=== PATIENT | female | born 1945 | race Caucasian/White ===

== ENCOUNTER 2017-06-17 00:51 | Inpatient (IN) | payer OTHER ==
[~2017-06-17] VITALS: Ht 162.6 cm; Wt 84.0 kg
[2017-06-17 01:42] LABS: BASOPHIL (%) 0.5 % (0-1); EOSINOPHIL (%) 1.4 % (0-5); EOSINOPHIL COUNT 0.1 K/uL (0-0.3); HEMATOCRIT 38.9 % (36.0-46.0); HEMOGLOBIN 13.3 G/DL (11.9-15.5); LYMPHOCYTE (%) 18.1 % (15-42); LYMPHOCYTE COUNT 1.5 K/uL (1.0-2.8); MCH 28.9 PG (29.0-34.0); MCHC 34.2 G/DL (30.0-36.0); MCV 84.4 FL (83-99); MONOCYTE (%) 7.1 % (3-12); MONOCYTE COUNT 0.6 K/uL (0-0.8); NEUTROPHIL (%) 71.9 % (45-76); PLATELET COUNT 194 K/uL (156-360); RBC DIS.WIDTH-CV 12.7 % (11.8-14.6); RBC DIS.WIDTH-SD 38.6 % (39-53); RED BLOOD COUNT 4.61 M/uL (3.80-5.20); WHITE BLOOD COUNT 8.4 K/uL (4.1-10.2)
[2017-06-17 01:53] LABS: ALBUMIN 4.1 g/dL (3.2-4.8); CHLORIDE 107 mEq/L (99-109); POTASSIUM 3.4 mEq/L (3.7-5.4); SODIUM 142 mEq/L (136-147)
[2017-06-17 01:55] LABS: GLUCOSE 188 mg/dL (70-99); TOTAL PROTEIN 6.7 g/dL (6.4-8.3)
[2017-06-17 01:57] LABS: TOTAL BILIRUBIN 0.7 mg/dL (0.0-1.0)
[2017-06-17 01:59] LABS: ALKALINE PHOSPHATASE 55 IU/L (3-129); CREATININE 0.8 mg/dL (0.6-1.3); GFR ESTIMATE (CALCULATED) > 59 mL/min/
[2017-06-17 02:00] LABS: UREA NITROGEN (BUN) 18 mg/dL (9-23)
[2017-06-17 02:01] LABS: AST (GOT) 25 IU/L (2-34)
[2017-06-17 02:02] LABS: ALT (GPT) 27 IU/L (3-49)
[2017-06-17 02:03] LABS: TROP-I INTERPRETATION NEGATIVE; TROPONIN-I < 0.01 ng/mL (0.0-0.30)
[2017-06-17] MEDS ORDERED: LEVOTHYROXINE75 MCG PO (04:02)
[2017-06-17] MEDS ORDERED: LOVASTATIN20 MG PO (04:02)
[2017-06-17] MEDS ORDERED: LISINOPRIL-HCT1 EAC3 PO (04:02)
[2017-06-17] MEDS ORDERED: ASPIRIN81 M2 PO (04:02)
[2017-06-17 04:33] VITALS: BP 163/83
[2017-06-17 05:25] LABS: HDL CHOLESTEROL 39 MG/DL (Desirable>=50); LDL CHOLESTEROL 97 mg/dL (Desirable<100); NON-HDL CHOLESTEROL 120 mg/dL (Desirable<160); TOTAL CHOLESTEROL 159 mg/dL (Desirable<200); TRIGLYCERIDES 115 MG/DL (Normal: <150)
[2017-06-17 07:23] VITALS: BP 138/72
[2017-06-17 11:21] VITALS: BP 156/81
[2017-06-17 12:31] VITALS: BP 150/92
[2017-06-17 13:18] LABS: APPEARANCE CLEAR ((CLEAR)); BILIRUBIN NEGATIVE; BLOOD NEGATIVE; COLOR STRAW ((YELLOW)); GLUCOSE (STRIP) NEGATIVE; KETONES NEGATIVE; LEUKOCYTES NEGATIVE; NITRITE NEGATIVE; PROTEIN (STRIP) NEGATIVE; SPECIFIC GRAVITY 1.009 (1.000-1.030); UCUL ADDED? NO; UROBILINOGEN 0.2 MG/DL (0.2-1.0)
[2017-06-17] MEDS ORDERED: CALCIUM 500 +1 EAC2 PO (14:13)
[2017-06-17] MEDS ORDERED: ASCORBIC ACID500 M3 PO (14:13)
[2017-06-17] MEDS ORDERED: VITAMIN D-3 401 EACH PO (14:14)
[2017-06-17] MEDS ORDERED: TYLENOL EXTRA500 MG PO (14:14)
[2017-06-17] MEDS ORDERED: B-12500 MC1 SL (14:14)
[2017-06-17 16:25] VITALS: BP 159/93
[2017-06-17 19:05] VITALS: BP 126/82
[2017-06-18 00:20] VITALS: BP 125/64
[2017-06-18 03:58] VITALS: BP 128/68
[2017-06-18 07:16] LABS: CHLORIDE 106 MEQ/L (99-109); CREATININE 0.7 MG/DL (0.6-1.3); GFR ESTIMATE (CALCULATED) > 59 mL/min/; POTASSIUM 3.9 MEQ/L (3.7-5.4); SODIUM 141 MEQ/L (136-147); UREA NITROGEN (BUN) 13 mg/dL (9-23)
[2017-06-18 07:20] LABS: GLUCOSE 97 mg/dL (70-99)
[2017-06-18 08:06] VITALS: BP 132/91
[2017-06-18 08:32] LABS: HEMOGLOBIN A1c (GLYCOHEMOGLOB) 6.1 % (Below 5.7)
[2017-06-18] MEDS ORDERED: ANTIVERT25 MG PO (10:50)
== END 2017-06-18 12:02 | disposition home or self-care (01) | DRG 65 ==
LOC: EME 00:51 → EDOF 03:32 → ENRESERV 03:33 → 5WEST 04:15 → ENRESERV 10:33 → 5SOUTH 12:26
PROVIDERS: Emergency Medicine; Hospitalist; Internal Medicine; Physician Assistant Medical
DX: I63.9 Cerebral infarction, unspecified (principal); E86.0 Dehydration; E87.2 Acidosis; E87.6 Hypokalemia; H81.10 Benign paroxysmal vertigo, unspecified ear; I10 Essential (primary) hypertension; E03.9 Hypothyroidism, unspecified; E78.5 Hyperlipidemia, unspecified; R11.2 Nausea with vomiting, unspecified; R19.7 Diarrhea, unspecified; R73.9 Hyperglycemia, unspecified; Z79.82 Long term (current) use of aspirin; Z80.41 Family history of malignant neoplasm of ovary; Z82.49 Family history of ischemic heart disease and other diseases of the circulatory system
CPT/HCPCS: 70450; 70551; 80048; 80053; 80061; 81003; 82948; 83036; 83605; 84484; 85025; 93005; 93306; 93880; 99281; 99285; J1644; J1815; J2060; J2405; J7030